=== PATIENT | female | born 1960 | race Caucasian/White ===

== ENCOUNTER 2017-03-21 14:41 | Emergency (ER) | payer OTHER ==
[2017-03-21 15:59] LABS: HEMOGLOBIN 14.3 gm/dl (12.3-15.3); RED BLOOD COUNT 5.2 M/UL (4.00-5.10); WHITE BLOOD COUNT 10.8 K/UL (4.5-11.0)
[2017-03-21 16:25] LABS: BUN/CREATININE RATIO 28 (0-10)
[2017-05-30] MEDS ORDERED: BUPRENORPHIN-N1 EACH SL (19:01)
[2017-05-30] MEDS ORDERED: ZOFRAN4 MG PO (19:02)
[2017-05-30] MEDS ORDERED: AZATHIOPRINE50 MG PO (19:03)
[2017-05-30] MEDS ORDERED: NEURONTIN 300300 MG PO (19:07)
[2017-05-30] MEDS ORDERED: KONSYL PO (19:14)
[2017-05-30] MEDS ORDERED: METHOCARBAMOL500 MG PO (19:15)
[2017-05-30] MEDS ORDERED: LISINOPRIL10 MG PO (19:15)
[2017-05-30] MEDS ORDERED: OXYCODONE HCL5 MG PO (19:16)
[2017-05-30] MEDS ORDERED: DILANTIN50 MG PO (19:20)
[2017-05-30] MEDS ORDERED: VIREAD300 MG PO (19:21)
[2017-06-01] MEDS ORDERED: ASPIRIN CHEWABL81 MG PO (17:42)
[2017-06-01] MEDS ORDERED: KEPPRA500 MG PO (17:43)
[2017-06-01] MEDS ORDERED: METOPROLOL TART50 MG PO (17:44)
== END 2017-03-21 20:00 | disposition short-term general hospital (02) ==
LOC: ER1 14:41
PROVIDERS: Emergency Medicine
DX: K56.60 Unspecified intestinal obstruction (principal); E53.9 Vitamin B deficiency, unspecified; K50.90 Crohn's disease, unspecified, without complications; Z88.2 Allergy status to sulfonamides; Z79.899 Other long term (current) drug therapy
CPT/HCPCS: 36415; 80053; 82150; 83690; 85025; 96361; 96374; 96375; 96376; 99285; J2270; J2405; J7050; Q9962